=== PATIENT | female | born 1945 | race Caucasian/White ===

== ENCOUNTER 2017-03-31 16:42 | Emergency (ER) | payer BC, MEDICARE, SELFPAY ==
[2017-03-31] MEDS ORDERED: HYDROcodone/Acetaminophen 5/325 mg Tablet ONE (18:39)
[2017-03-31 18:40] LABS: #Basophils 0.1 thou/uL (0.0-0.2); #Eosinphils 0.8 thou/uL (0.0-0.7); #Lymphocytes 2.8 thou/uL (1.20-3.40); #Monocytes 0.8 thou/uL (0.11-0.59); %Basophils 0.8 % (0.0-1.0); %Eosinophils 8.1 % (0.0-10.0); %Lymphocytes 29.6 % (21.0-51.0); %Monocytes 8.9 % (0.0-10.0); %Neutrophils 52.6 % (42.0-75.0); Hemoglobin 14.8 g/dL (12.0-16.0); Mean Corpuscular HGB CONC 31.8 g/dL (32.0-36.0); Mean Corpuscular Hemoglobin 30.8 pg (27.0-31.0); Mean Corpuscular Volume 96.7 fl (81.0-99.0); Mean Platelet Volume 7.6 fL (7.4-10.4); Platelet Count 313 thou/uL (130-400); RBC Distribution Width 12.8 % (11.5-14.5); Red Blood Cell (RBC) Count 4.81 mill/uL (4.20-5.40); White Blood Cell (WBC) Count 9.5 thou/uL (4.8-10.8)
--- NOTE | 2017-03-31 18:48 | RAD ---
PORTABLE CHEST: 03/31/17 HISTORY: Chest pain. Lungs appear clear. Heart and mediastinum are unremarkable. IMPRESSION: No acute abnormality identified. POS: [facility]
[2017-03-31 19:02] LABS: ALT (SGPT) 30 U/L (8-55); AST (SGOT) 25 U/L (5-34); Albumin 4.2 g/dL (3.4-4.8); Alkaline Phosphatase 92 U/L (40-150); Anion Gap 12 mmol/L (10-20); BUN (Urea Nitrogen) 20 mg/dL (9.8-20.1); Bilirubin, Total 0.5 mg/dL (0.2-1.2); Calc. Creatinine Clearance 0 mL/min (70-130); Calcium 9.8 mg/dL (7.8-10.44); Carbon Dioxide 27 mmol/L (23-31); Chloride 105 mmol/L (98-107); Estimated GFR-MDRD 62; Globulin 3.7 g/dL (2.4-3.5); Glucose 112 mg/dL (80-115); Potassium 4.2 mmol/L (3.5-5.1); Protein, Total 7.9 g/dL (6.0-8.3); Sodium 140 mmol/L (136-145)
[2017-03-31 20:11] LABS: Bilirubin Negative (Negative); Blood, Urine Negative (Negative); Clarity CLOUDY (Clear); Glucose, Urine (Dipstick) Negative (Negative); Leukocyte Small (Negative); Nitrite Positive (Negative); Protein, Urine (Dipstick) Negative (Neg-Trace); Specific Gravity, Urine 1.026 (1.002-1.036); Urobilinogen 0.2 mg/dL (0.2-1.0)
[2017-03-31 20:21] LABS: Bacteria/HPF 4+ HPF (None Seen); Hyaline Casts/LPF 0-3 HYALINE CAST LPF (0-3 Hyaline); Pathc Cast-AUWi Flag 0.13 (0-2.49); RBC/HPF 0-3 HPF (0-3); Squamous Epithelial 0-3 HPF (0-3)
--- NOTE | 2017-03-31 20:23 | CT ---
CT CERVICAL SPINE: 03/31/17 Multiple axial tomograms obtained through the cervical spine with multiplanar reconstruction. HISTORY: Injury to neck with pain. There is a slightly displaced fracture off the anterior corner of the C2 vertebra at the C2-3 disc. T his fragment slightly displaced and measures approximately 8 to 10 mm. There are postoperative changes. Anterior plate and screws transfix C3-C4 and C5 with interbody impla nts and partial fusion. There are degenerative changes. No other evidence of acute fracture identifie d. The thyroid is diffusely enlarged and heterogeneous. IMPRESSION: 1. There is a small fragment fractured off the anterior inferior corner of the C2 vertebra at th e C2-3 disc consistent with a teardrop type fracture fragment. 2. There are postop and degenerative changes of the cervical spine as described. Findings relaye d to Dr. Mcclain. 3. The thyroid is diffusely large and heterogeneous. Recommend clinical correlation and further evaluation as indicated. POS: [facility]
--- NOTE | 2017-03-31 22:24 | CON ---
DATE OF CONSULTATION: 03/31/2017 HISTORY OF PRESENT ILLNESS: Ms. Salazar is a 71-year-old woman who presents to the emergency depar tme for significant neck pain and some mild paresthesias to the very tips of her first and second d igits of the left hand, what appears to be either C6 or C7 type arm pain to the left upper extremity. This is onset since the fall, now exactly 1 week ago where she struck her face on the ground trippi ng over a hose at home. She did not seek any additional medical treatment, but continued to have per sistent neck pain and the current symptoms that she has to the point where she went to her primary ca re physician today, who performed AP and lateral cervical spine x-rays and found a teardrop fracture of the anterior inferior endplate of C2 with some minimal displacement. This was explained the neck pain that she has, I do not see any other significant pathology. She does have a previous C3 through C5 ACDF that she believes Dr. Chin in our practice performed roughly 9 or 10 years ago. At this point, now she does not exactly recall. She was referred to us at [facility] in 2014 for recurrent radicular symptoms with pathology at the levels below at C5-C6 and C6-C7, but never follow ed up and she states the symptoms actually resolved on their own in time. My conversations with her at bedside, she appears to be in minimal distress. She is in a trauma cervical collar, which she not es is uncomfortable and does have some lower base of the neck pain posteriorly and axially and contin ues to have a persistent arm pain. The numbness on her fingers is still present, but minimal at wors t. She has good strength in the bilateral upper extremities and has full range of motion in all join ts. Her gait is unaffected. From neurosurgical standpoint, I do not believe that there is any need for surgical intervention other than in her case, would recommend [place] collar at all times for the n ext 4 to 6 weeks. She can keep the trauma collar and use that for bathing. I would like to see her in our outpatient clinic in 2 weeks with x-rays films and go from there pain control, I think it woul d be best served with Celebrex, which she states she took today and it did help a great deal. Also, depend on ER staff for an outpatient meds to go home with that as well. I encouraged her to call our office if there are any questions. Otherwise, we will plan to see her in 2 weeks. This is Stevie Lacy PA-C dictating for Dr. Valencia.
== END 2017-03-31 21:09 | disposition home or self-care (01) ==
LOC: ERS 16:42
DX: S12.100A Unspecified displaced fracture of second cervical vertebra, initial encounter for closed fracture (principal); I10 Essential (primary) hypertension; W01.0XXA Fall on same level from slipping, tripping and stumbling without subsequent striking against object, initial encounter; Y92.009 Unspecified place in unspecified non-institutional (private) residence as the place of occurrence of the external cause
CPT/HCPCS: 36415; 71045; 72125; 80053; 81003; 81015; 85025

== ENCOUNTER 2017-04-27 12:37 | Outpatient (CLI) | payer OTHER ==
--- NOTE | 2017-04-27 13:24 | RAD ---
CERVICAL SPINE 3 VIEWS: HISTORY: Neck fracture. Neck pain. FINDINGS: Anterior fixation plate is in place at the C3-4-5 levels. Interbody fusion material within the confi jose of the disk spaces at the postoperative levels. There are prominent degenerative changes of the lower cervical spine. Minimal anterior displacement of an anterior inferior corner fragment of the C2 vertebral is unchange d in alignment from the 03/31/17 CT exam. Cervicothoracic junction is intact. IMPRESSION: 1. Stable CT appearance of the C2 vertebral body fracture. 2. Stable radiographic appearance of the postoperative changes cervical spine. POS: [facility]
== END 2017-04-27 12:38 | disposition home or self-care (01) ==
LOC: TBSIIMAG 12:37
PROVIDERS: ATTEND Neurological Surgery
DX: S12.9XXA Fracture of neck, unspecified, initial encounter (principal); S12.100D Unspecified displaced fracture of second cervical vertebra, subsequent encounter for fracture with routine healing; Z98.1 Arthrodesis status
CPT/HCPCS: 72040